=== PATIENT | female | born 1960 | race Caucasian/White ===

== ENCOUNTER 2019-04-02 22:17 | Emergency (ER) | payer OTHER ==
[2019-04-03] MEDS ORDERED: HYDROMORPHONE HCL INJ/PF 2 MG/ML AMPULE IV ONE ×2 (00:07→03:38)
[2019-04-03] MEDS ORDERED: NORMAL SALINE 1000 ML 1,000 ML IV ONE (00:08)
[2019-04-03] MEDS ORDERED: METOCLOPRAMIDE HCL INJ/PF 10 MG/2 ML SDV IV ONE (00:13)
--- NOTE | 2019-04-03 00:13 | ER Document Report ---
ED Medical Screen (RME) - General Chief Complaint: Abdominal Pain Stated Complaint: ABDOMINAL PAIN Time Seen by Provider: 04/03/19 00:06 Primary Care Provider: OCTAVIO GOVEA MD [Primary Care Provider] - Follow up as needed Notes: 58-year-old female coming in today with severe right sided abdominal pain with vomiting. I have treated and performed a rapid initial assessment of this patient. A comprehensive ED assessment and evaluation of the patient, analysis of test results and completion of medical decision making process will be conducted by additional ED providers. PHYSICAL EXAMINATION: GENERAL: Well-appearing, well-nourished and in no acute distress. A&Ox4. Answers questions appropriately. LUNGS: Breath sounds clear to auscultation bilaterally and equal. No wheezes rales or rhonchi. HEART: Regular rate and rhythm without murmurs, rubs, gallops. ABDOMEN: Nontender to palpate Extremities: No cyanosis, clubbing, or edema b/l. NEUROLOGICAL: Normal speech, normal gait. PSYCH: Normal mood, normal affect. TRAVEL OUTSIDE OF THE [place] IN LAST 30 DAYS: No - Related Data Allergies/Adverse Reactions: Penicillins Allergy (Verified 04/02/19 22:18) Sulfa (Sulfonamide Antibiotics) Allergy (Verified 04/02/19 22:18) morphine Adverse Reaction (Verified 04/02/19 22:18) Physical Exam - Vital signs Vitals: Temp Pulse Resp BP Pulse Ox 97.8 F 67 18 163/80 H 97 04/02/19 22:25 04/02/19 22:25 04/02/19 22:25 04/02/19 22:25 04/02/19 22:25 Course - Vital Signs Vital signs: Temp Pulse Resp BP Pulse Ox 97.8 F 67 18 163/80 H 97 04/02/19 22:25 04/02/19 22:25 04/02/19 22:25 04/02/19 22:25 04/02/19 22:25 Doctor's Discharge - Discharge Referrals: OCTAVIO GOVEA MD [Primary Care Provider] - Follow up as needed
[2019-04-03 01:42] LABS: ABSOLUTE BASOPHILS # (AUTO) 0.1 10^3/uL (0.0-0.2); ABSOLUTE EOSINOPHILS # (AUTO) 0.1 10^3/uL (0.0-0.6); ABSOLUTE LYMPHOCYTES (AUTO) 2.4 10^3/uL (0.5-4.7); ABSOLUTE MONOCYTES (AUTO) 0.7 10^3/uL (0.1-1.4); BASOPHILS % (AUTO) 0.4 % (0-2); EOSINOPHILS % (AUTO) 0.8 % (0-6); HEMATOCRIT 40.4 % (36.0-47.0); HEMOGLOBIN 13.7 g/dL (12.0-15.5); LYMPHOCYTES % (AUTO) 17.9 % (13-45); MEAN CORPUSCULAR HEMOGLOBIN 31.8 pg (27.0-33.4); MEAN CORPUSCULAR HGB CONC 33.9 g/dL (32.0-36.0); MEAN CORPUSCULAR VOLUME 94 fl (80-97); PLATELET COUNT 361 10^3/uL (150-450); RED CELL DISTRIBUTION WIDTH 13.2 % (11.5-14.0); SEGMENTED NEUTROPHILS % (AUTO) 75.9 % (42-78); TOTAL CELLS COUNTED % (AUTO) 100 %; WHITE BLOOD COUNT 13.2 10^3/uL (4.0-10.5)
[2019-04-03 01:53] LABS: APPEARANCE,URINE CLOUDY; BILIRUBIN,URINE NEGATIVE (NEGATIVE); COLOR,URINE RED; GLUCOSE, URINE NEGATIVE (NEGATIVE); KETONES,URINE NEGATIVE (NEGATIVE); LEUKOCYTE ESTERASE,URINE NEGATIVE (NEGATIVE); NITRITE,URINE POSITIVE (NEGATIVE); PROTEIN,URINE 100 mg/dL (NEGATIVE); URINE SPECIFIC GRAVITY 1.016; UROBILINOGEN,URINE NEGATIVE mg/dL (<2.0)
[2019-04-03 01:58] LABS: ALANINE AMINOTRANSFERASE 30 U/L (9-52); ALBUMIN 4.6 g/dL (3.5-5.0); ALKALINE PHOSPHATASE 87 U/L (38-126); ANION GAP 9 (5-19); ASPARTATE AMINO TRANSFERASE 29 U/L (14-36); BILIRUBIN,DIRECT 0.2 mg/dL (0.0-0.4); BILIRUBIN,TOTAL 0.3 mg/dL (0.2-1.3); BLOOD UREA NITROGEN 11 mg/dL (7-20); CALCIUM 9.8 mg/dL (8.4-10.2); CARBON DIOXIDE 30 mmol/L (22-30); CHLORIDE 98 mmol/L (98-107); GLUCOSE 105 mg/dL (75-110); POTASSIUM 4.2 mmol/L (3.6-5.0); TOTAL PROTEIN 7.2 g/dL (6.3-8.2)
[2019-04-03] MEDS ORDERED: ONDANSETRON HCL INJ/PF 4 MG/2 ML SDV IV ONE (03:38)
--- NOTE | 2019-04-03 03:41 | ER Document Report ---
ED General - General Chief Complaint: Abdominal Pain Stated Complaint: ABDOMINAL PAIN Time Seen by Provider: 04/03/19 00:06 Primary Care Provider: OCTAVIO GOVEA MD [Primary Care Provider] - Follow up as needed Notes: Patient is a pleasant 58-year-old female presents with right flank pain. She says that she initially did start noticing some blood in her urine yesterday. Today she started noticing some pain in the right flank which prescribed became worse and then she started having vomiting so she with the. No dysuria. No fevers. No diarrhea. Pain radiates around the right flank and into the right lower portion of the abdomen. No other complaints at this time. She never had symptoms like this before. She has a past medical history of high cholesterol, hypertension, and seasonal allergies. She is followed by Dr. Morillo. TRAVEL OUTSIDE OF THE [place] IN LAST 30 DAYS: No - Related Data Allergies/Adverse Reactions: Penicillins Allergy (Verified 04/02/19 22:18) Sulfa (Sulfonamide Antibiotics) Allergy (Verified 04/02/19 22:18) morphine Adverse Reaction (Verified 04/02/19 22:18) Past Medical History - Social History Smoking Status: Unknown if Ever Smoked Frequency of alcohol use: None Drug Abuse: None Family History: Reviewed & Not Pertinent Patient has suicidal ideation: No Patient has homicidal ideation: No Renal/ Medical History: Denies: Hx Peritoneal Dialysis Review of Systems - Review of Systems Notes: My Normal Review Basic REVIEW OF SYSTEMS: CONSTITUTIONAL : Denies fever, chills, or sweats. Denies recent illness. EENT: Denies eye, ear, throat, or mouth pain or symptoms. Denies nasal or sinus congestion. CARDIOVASCULAR: Denies chest pain. RESPIRATORY: Denies cough, cold, or chest congestion. Denies shortness of breath, difficulty breathing, or wheezing. GASTROINTESTINAL: Right flank pain. Some vomiting. GENITOURINARY: Hematuria FEMALE GENITOURINARY: Denies vaginal bleeding, abnormal or irregular periods. MUSCULOSKELETAL: Denies neck or back pain or joint pain or swelling. SKIN: Denies rash or skin lesions. NEUROLOGICAL: Denies altered mental status or loss of consciousness. Denies headache. Denies weakness or paralysis or loss of use of either side. Denies problems with gait or speech. Denies sensory or motor loss. ALL OTHER SYSTEMS REVIEWED AND NEGATIVE. Physical Exam - Vital signs Vitals: Temp Pulse Resp BP Pulse Ox 97.8 F 67 18 163/80 H 97 04/02/19 22:25 04/02/19 22:25 04/02/19 22:25 04/02/19 22:25 04/02/19 22:25 - Notes Notes: General Appearance: Well nourished, alert, cooperative, no acute distress, mild to moderate obvious discomfort. Vitals: reviewed, See vital signs table. Head: no swelling or tenderness to the head Eyes: PERRL, EOMI, Conjuctiva clear Mouth: No decreasd moisture Lungs: No wheezing, No rales, No rhonci, No accessory muscle use, good air exchange bilaterally. Heart: Normal rate, Regular rythm, No murmur, no rub Abdomen: Normal BS, soft, No rigidity, no reproducible abdominal tenderness to palpation other than some mild right lower flank tenderness to palpation, No guarding, no rebound, no abdominal masses, no organomegaly Back: Negative Luis sign. Extremities: good pulses in all extremities, no swelling or tenderness in the extremities, no edema. Skin: warm, dry, appropriate color, no rash Neuro: speech clear, oriented x 3, normal affect, responds appropriately to questions. Course - Re-evaluation Re-evalutation: 04/03/19 05:50 Patient reports he does have a large renal mass. She does have some social urine tract infection which she was actually being treated before with nitrofurantoin. I will switch her to Keflex and I did give her a dose of Rocephin. Because of the social infection and mass I did speak with Dr. Yost, urologist [facility], to try to arrange outpatient follow-up. He says that outpatient follow-up is appropriate in this context. He stated to have the patient call his office tomorrow morning and to have them give her an appointment for early next week. He said we did see the patient himself as he is trying to take care of renal masses. This very well, she has normal vital signs, her pain and nausea is under control and therefore I think outpatient follow-up is appropriate. I informed her that she needs have a low threshold to return to the ER immediately if she has worsening pain, vomiting, fevers, or if she feels that she is worsening any way. I informed her of the plan to follow- up with Dr. Yost and the patient and her are agreeable with this. All questions were answered. I did get a copy of her CT scans and placed them on a CD so that she can take this with her to her appointment. Dictation of this chart was performed using voice recognition software; therefore, there may be some unintended grammatical errors. - Vital Signs Vital signs: Temp Pulse Resp BP Pulse Ox 97.8 F 67 18 163/80 H 97 04/02/19 22:25 04/02/19 22:25 04/02/19 22:25 04/02/19 22:25 04/02/19 22:25 - Laboratory Result Diagrams: 04/03/19 01:21 04/03/19 01:21 Laboratory results interpreted by me: 04/03/19 04/03/19 01:21 01:21 WBC 13.2 H Absolute Neutrophils 10.0 H Urine Protein 100 H Urine Blood LARGE H Urine Nitrite POSITIVE H Discharge - Discharge Clinical Impression: Renal mass UTI (urinary tract infection) Qualifiers: Urinary tract infection type: site unspecified Hematuria presence: with hematuria Qualified Code(s): N39.0 - Urinary tract infection, site not specified; R31.9 - Hematuria, unspecified Condition: Good Disposition: HOME, SELF-CARE Additional Instructions: As discussed with the you do have what appears to be a mass on your right kidney. This is likely why you have been having blood in the urine as well as some pain and nausea and vomiting. I prescribed a medicine for your pain. This medicine is called Browning. Please be aware that Browning does have Tylenol (néstor taminophen) in it. Please make sure you do not take more than 4000 mg of acetaminophen a day. Do not drive or care for children after you have taken this medication as they will make you sleepy and sometimes impair judgment. I prescribed you nausea medicine called Zofran. I have also prescribed an antibiotic called Keflex. You can stop taking the nitrofurantoin. I did speak with Dr. Yost, urologist at [facility]. I spoke to him about the renal mass. He request that you call the office this morning to make an appointment for next week. He said to inform the office staff that you were seen in the ER and the ER physician discussed the case with him and he wants you to be seen by him in his office this coming week. Please return to the ER immediately if you have fevers, intractable pain, intractable vomiting, or feel like you are worsening in any way. Prescriptions: Cephalexin Monohydrate [Keflex 500 mg Capsule] 500 mg PO BID #14 capsule Hydrocodone/Acetaminophen [Browning 5-325 mg Tablet] 1 tab PO Q4 PRN #16 tablet PRN Reason: For Breakthrough Pain Ondansetron [Zofran Odt 4 mg Tablet] 1 tab PO Q4H PRN #15 tab.rapdis PRN Reason: For Nausea/Vomiting Forms: Return to Work Referrals: JANEY YOST MD [NO LOCAL MD] - Follow up in 3-5 days (call office this am to make appointment.)
--- NOTE | 2019-04-03 04:23 | RADIOLOGY REPORT (SQ) ---
CT abdomen and pelvis without contrast on 04/03/2019 at 2:53 AM CLINICAL INDICATION: Right-sided back pain TECHNIQUE: Multiple axial images are obtained throughout the abdomen and pelvis without the administration of contrast. This exam was performed according to our departmental dose-optimization program, which includes automated exposure control, adjustment of the mA and/or kV according to patient size and/or use of iterative reconstruction technique. Total DLP is 970.83 mGy*cm. COMPARISON: None FINDINGS: Abdomen: The lung bases are clear. There is a large heterogeneous lobulated soft tissue density mass off the mid to lower pole of the right kidney most consistent with a large renal cell carcinoma. Would recommend follow-up renal mass protocol CT be performed to better evaluate when feasible. This mass measures approximately 8.7 x 6.9 x 9.2 cm. There are no renal or ureteral stones and no hydronephrosis. The unenhanced solid abdominal organs are otherwise unremarkable. Vascular calcifications are noted. There is no abdominal adenopathy. There is no free fluid or free air within the abdomen. The abdominal portion of the GI tract is unremarkable. Pelvis: There is no free fluid in the pelvis. Pelvic organs appear unremarkable by CT. There is no pelvic adenopathy. Pelvic portion of the GI tract including the appendix is unremarkable. No acute bony abnormality is noted. IMPRESSION: Large lobulated right renal mass most consistent with a renal cell carcinoma. When feasible recommend follow-up renal mass protocol CT with and without contrast to better evaluate and recommend urology consultation.
[2019-04-03] MEDS ORDERED: CEFTRIAXONE 1 GM/D5W RTU 1 GM/50 ML RTUPB IV ONE (05:00)
[2019-04-03] MEDS ORDERED: HYDROCODONE/ACETAMINOPHEN 5-325 MG (6 TAB/ER DISP) PO PRN (05:16)
[2019-04-03] MEDS ORDERED: ONDANSETRON ODT 4 MG TAB (6 TAB/ER DISP) PO PRN (05:16)
[2019-04-03 05:40] VITALS: BP 141/64
== END 2019-04-03 05:30 | disposition home or self-care (01) ==
LOC: ER 22:17
DX: N39.0 Urinary tract infection, site not specified (principal); R31.0 Gross hematuria; N28.89 Other specified disorders of kidney and ureter; R10.9 Unspecified abdominal pain; R11.10 Vomiting, unspecified; I10 Essential (primary) hypertension; Z88.0 Allergy status to penicillin; Z88.2 Allergy status to sulfonamides
CPT/HCPCS: 99284; 36415; 87086; 83690; 85025; 87088; 80053; 81001; 87186; 74176; J2765; J1170; J2405; J7030; J0696